=== PATIENT | male | born 1955 | race Caucasian/White ===

== ENCOUNTER 2024-02-24 03:59 | Day surgery (SDC) | payer OTHER, BC ==
[2024-02-22 12:32] VITALS: BMI 30.4
[2024-02-24] MEDS ORDERED: ACETAMINOPHEN 500 MG TABLET (FP) PO PRN (08:30)
[2024-02-24 12:06] VITALS: BP 137/82; PULSE 78; RESP 20; TEMP 97.8
== END 2024-02-24 13:00 | disposition home or self-care (01) ==
LOC: JASU-SURG 03:59
PROVIDERS: ATTEND Pain Medicine Pain Medicine
PROC: 015D3ZZ Destruction of Femoral Nerve, Percutaneous Approach (ICD-10-PCS; principal; 2024-02-24 10:44)
DX: M25.561 Pain in right knee (principal)

== ENCOUNTER 2024-03-14 06:18 | Day surgery (SDC) | payer OTHER, BC ==
[2024-03-10 10:05] VITALS: BMI 30.4
[2024-03-14] MEDS ORDERED: VANCOMYCIN 1,000 MG VIAL (RESTRICTED TO ID ONLY) ONE (07:40)
[2024-03-14] MEDS ORDERED: MIDAZOLAM HCL 2 MG/2 ML SINGLE DOSE VIAL ONE (07:44)
[2024-03-14] MEDS ORDERED: ROPIVACAINE HCL/PF 100 MG/20 ML VIAL ONE (07:44)
[2024-03-14] MEDS ORDERED: KETAMINE HCL 100 MG/ML - 5ML VIAL ONE (07:44)
[2024-03-14] MEDS ORDERED: PROPOFOL 80 ML ONE (08:04)
[2024-03-14] MEDS ORDERED: BUPIVICAINE 0.25%/MORPH PF/KETOROLAC - 51ML DISP.SYRINGE IA ONE (09:37)
[2024-03-14] MEDS: BUPIVICAINE 0.25%/MORPH PF/KETOROLAC - 51ML DISP.SYRINGE IA ONE (09:59)
[2024-03-14] MEDS ORDERED: oxyCODONE HCL 5 MG TABLET PO PRN (10:41)
[2024-03-14] MEDS ORDERED: ONDANSETRON 4 MG/2 ML VIAL IVPUSH PRN ×2 (10:41→10:45)
[2024-03-14] MEDS ORDERED: MAG HYDROX/AL HYDROX/SIMETH 30 ML UNIT-DOSE CUP PO PRN (10:45)
[2024-03-14] MEDS ORDERED: LACTATED RINGERS SOLUTION 1,000 ML IV SCH (10:45)
[2024-03-14] MEDS: ACETAMINOPHEN 1000 MG/100 ML BAG IVPB ONE (10:51)
[2024-03-14] MEDS ORDERED: AMPHETAMINE PO SCH (11:00)
[2024-03-14] MEDS ORDERED: [UNRECOGNIZED DRUG - OTHER] PO SCH (11:00)
[2024-03-14] MEDS ORDERED: DEXTROAMPHETAMINE PO SCH (11:00)
[2024-03-14] MEDS: oxyCODONE HCL 5 MG TABLET PO PRN (12:01)
[2024-03-14] MEDS: LACTATED RINGERS SOLUTION 1,000 ML IV SCH (12:05)
[2024-03-14] MEDS ORDERED: REFRIGERATED ANITBIOTICS ONE (14:43)
[2024-03-14] MEDS: HYDROmorphone HCL/PF 1 MG/ML VIAL IVPUSH PRN (15:40)
[2024-03-14] MEDS: CEFAZOLIN SODIUM 2 GM in DEXTROSE 5%-WATER 100 ML IVPB SCH (17:06)
[2024-03-14] MEDS: oxyCODONE HCL 10 MG SUSTAINED ACTING TABLET PO SCH (21:44)
[2024-03-14] MEDS: VERAPAMIL HCL 240 MG E.R. TABLET PO SCH (21:45)
[2024-03-14] MEDS: GABAPENTIN 300 MG CAPSULE PO SCH (21:45)
[2024-03-14] MEDS: SENNOSIDES/DOCUSATE COMBO (SENNA PLUS) TABLET (UD) PO SCH (21:45)
[2024-03-14 22:22] VITALS: RESP 18
[2024-03-15] MEDS: ACETAMINOPHEN 1000 MG/100 ML BAG IVPB ONE (03:01)
[2024-03-15 08:37] LABS: CALCIUM 8.3 mg/dl (8.5-10.1); CREATININE 0.7 mg/dl (0.6-1.3); POTASSIUM 3.8 mmol/L (3.5-5.1)
[2024-03-15 08:48] LABS: HEMATOCRIT 34.6 % (35.4-49); HEMOGLOBIN 11.6 G/dL (11.7-16.9); MCH 29.4 pg (25.7-33.7); MCHC 33.4 g/dl (32.0-35.9); MEAN CELL VOLUME 88.1 fl (80-96); MEAN PLT VOLUME 7.6 fl (7.5-11.1); RBC 3.93 10^6/uL (4.00-5.60); RDW 13.8 % (11.9-15.9)
[2024-03-15] MEDS: ASPIRIN COATED 81 MG TABLET.EC PO SCH (09:18)
[2024-03-15] MEDS: MULTIVITAMINS (DAILY MVI) TABLET (FP) PO SCH (09:18)
[2024-03-15] MEDS: LOSARTAN POTASSIUM 50 MG TABLET PO SCH (09:18)
[2024-03-15] MEDS: PANTOPRAZOLE 40 MG TABLET PO SCH (09:18)
[2024-03-15] MEDS ORDERED: PATIENT'S OWN MEDICATION (NON-FORMULARY) (Telmisartan [Micardis] 80 MG Tablet) PO SCH (10:00)
[2024-03-15] MEDS: ACETAMINOPHEN 1000 MG/100 ML BAG IVPB PRN (10:47)
[2024-03-15] MEDS: KETOROLAC TROMETHAMINE 30 MG/1 ML VIAL IVPUSH PRN (10:47)
[2024-03-15 14:39] VITALS: BP 115/67; PULSE 78; TEMP 98
== END 2024-03-15 15:20 | disposition home health service (06) ==
LOC: FASU 06:18 → FASUSAT 06:18 → SUATTDRO 06:18 → FM/S 11:41 → FASUSAT 03-15 15:20
PROC: 0SRC0JA Replacement of Right Knee Joint with Synthetic Substitute, Uncemented, Open Approach (ICD-10-PCS; principal; 2024-03-14 08:44)
DX: M17.11 Unilateral primary osteoarthritis, right knee (principal)
CPT/HCPCS: 27447; C1776; 36415; 73560-TC-RT-FY; 80048; 85027; 88305-TC; 88311-TC; 94760; 97010-GP; 97116-GP; 97162-GP; J0131